=== PATIENT | female | born 1950 | race Caucasian/White ===

== ENCOUNTER 2017-02-22 10:57 | Observation (INO) | payer MEDICARE ==
--- NOTE | 2017-02-22 11:34 | RAD ---
EXAM DESCRIPTION: Chest,2 Views CLINICAL HISTORY: 66 years,Female,unresponsive COMPARISON: None FINDINGS: There are no consolidations. No effusions. No pneumothoraces. No nodules. Bony elements unremarkable for age. Bilateral calcified breast implants. Mild paucity of lung markings and hyperinflation. IMPRESSION: There may be some mild emphysematous changes but otherwise no acute findings. Electronically signed by: Max León MD 02/22/2017 11:33 AM CDT
[2017-02-22] MEDS ORDERED: IBUPROFEN 200 MG TAB PO ONE (12:04)
--- NOTE | 2017-02-22 15:38 | ED.PDOC ---
History of Present Illness - General Chief Complaint: Unresponsive Stated Complaint: found unresponsive at home Time Seen by Provider: 02/22/17 10:57 Source: patient, EMS notes reviewed Exam Limitations: clinical condition - History of Present Illness Initial Comments: The patient is a 66-year-old female presenting to the emergency room with something of a confusing story. EMS brought the patient in. EMS was called on this patient by her friend that she is staying with. Her friend apparently called the EMS reporting that she was blue and not arousable or breathing. The friend apparently told EMS that she did CPR on the patient. The first thing the patient remembers is looking up and seeing her friend. She doesn't remember any chest compressions. EMS arrived shortly and vital signs were normal and the patient was alert and oriented. The patient is feeling fine upon arrival here. Upon calling this friend back, her recollection of the events of the morning are very fuzzy and she does take numerous pain and sedative medications for her cancer diagnosis. The friend is unable to say if she did chest compressions or gave her rescue breathing. The friend is unable to say how long it was from the time that she found her to when she was back alert and oriented. This patient does take numerous sedating medications for her chronic diagnoses. There is, due to the medications, the possibility of a central sleep apnea. The patient also apparently suffers from seizures of one form or another and she may have been having a seizure this morning. There is also a question of arrhythmia in this patient's past. In short, there are multiple potential reasons for this patient to have been less than normally responsive when her friend checked on her. Timing/Duration: unsure Improving Factors: nothing Worsening Factors: nothing Allergies/Adverse Reactions: Allergies Aspirin Allergy (Verified 02/22/17 11:16) Erythromycin Allergy (Verified 02/22/17 11:16) Sulfamethoxazole w/Trimethoprim [From Bactrim] Allergy (Verified 02/22/17 11:16) Home Medications: Ambulatory Orders Amlodipine Besylate 5 mg PO DAILY 02/22/17 Carbamazepine 200 mg PO DAILY 02/22/17 Carbidopa-Levodopa [Carbidopa/Levodopa 25-100 mg] 1 tab PO TID 02/22/17 Diclofenac Potassium 50 mg PO Q8H PRN 02/22/17 Diclofenac Potassium (Migraine [Cambia] 50 mg PO BID PRN 02/22/17 Gabapentin 100 mg PO BEDTIME 02/22/17 Ibuprofen 600 mg PO Q8H PRN 02/22/17 Levothyroxine Sodium 50 mcg PO DAILY 02/22/17 Liothyronine Sodium 5 mcg PO DAILY 02/22/17 Meloxicam 15 mg PO DAILY 02/22/17 Ondansetron HCl [Zofran] 4 mg PO PRN 02/22/17 Propranolol HCl 40 mg PO BID 02/22/17 Ranitidine HCl 150 mg PO BID 02/22/17 Ropinirole Hydrochloride [Ropinirole HCl] 0.25 mg PO TID 02/22/17 tiZANidine [Zanaflex] 4 mg PO TID PRN 02/22/17 Review of Systems - Review of Systems Review of Systems: 02/22/17 15:38 for symptoms change from baseline or in addition to baseline Constitutional: States: no symptoms reported EENTM: States: no symptoms reported Respiratory: States: no symptoms reported Cardiology: States: no symptoms reported Gastrointestinal/Abdominal: States: no symptoms reported Genitourinary: States: no symptoms reported Musculoskeletal: States: no symptoms reported Skin: States: no symptoms reported Neurological: States: no symptoms reported Endocrine: States: no symptoms reported Past Medical History (General) - Patient Medical History Hx Seizures: Yes - Central tremors Hx Congestive Heart Failure: No Hx Thyroid Disease: Yes Hx Diabetes: No - Vaccination History Hx Influenza Vaccination: No Hx Pneumococcal Vaccination: No - Social History Hx Tobacco Use: Yes Family Medical History - Family History Mother Family History: Unknown Living Status: Unknown Physical Exam - Physical Exam General Appearance: Alert, Comfortable, No apparent distress - the patient's thought processes are obviously slowed No focal neurological deficits. She is alert and oriented. Eye Exam: bilateral normal Ears, Nose, Throat: hearing grossly normal, normal ENT inspection, normal pharynx Neck: non-tender, full range of motion, supple Respiratory: chest non-tender, lungs clear, normal breath sounds, no respiratory distress, no accessory muscle use Cardiovascular/Chest: normal peripheral pulses, regular rate, rhythm, no edema, other - the patient has breast implants Peripheral Pulses: radial,right: 2+, radial,left: 2+, dorsalis pedis,right: 2+, dorsalis pedis,left: 2+ Gastrointestinal/Abdominal: non tender, soft Rectal Exam: deferred Back Exam: normal inspection, no CVA tenderness, no vertebral tenderness Extremity: normal range of motion, non-tender, normal inspection, no pedal edema , no calf tenderness, normal capillary refill 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 Skin Exam: normal color Comments: Vital Signs - 24 hr 02/22/17 02/22/17 02/22/17 11:09 11:45 11:46 Temperature 96.9 F L Pulse Rate [ 81 75 85 Right Brachial] Respiratory 16 Rate Blood Pressure 176/79 154/88 154/89 [Right Arm] O2 Sat by Pulse 98 Oximetry 02/22/17 02/22/17 13:00 14:19 Temperature Pulse Rate [ 78 81 Right Brachial] Respiratory 20 16 Rate Blood Pressure 145/92 153/87 [Right Arm] O2 Sat by Pulse 100 98 Oximetry Progress - Progress Progress: 02/22/17 15:41 the patient is a 66-year-old female that may or may not have experienced an acute life-threatening event this morning. Laboratory work, EKG , chest x-ray, telemetry monitoring had been reassuring. The patient is mentating well and not exhibiting significant symptoms. Given her questionable history of arrhythmia, seizures and multiple sedative type medications, the patient will be monitored overnight to make sure there is no recurrence of any significant event. She will need telemetry and pulse oximetry monitoring. One more set of cardiac enzymes may be prudent. Admit for observation. - Results/Orders Results/Orders: 02/22/17 11:08 Telemetry .CONTINUOUS Vital Signs-Tilt PRN 02/22/17 11:15 EKG STAT Laboratory Results - last 24 hr 02/22/17 02/22/17 02/22/17 11:15 11:15 11:15 WBC 4.0 L RBC 3.68 L Hgb 11.7 L Hct 34.5 L MCV 93.7 MCH 31.7 H MCHC 33.8 RDW 13.3 Plt Count 105 L MPV 9.6 Absolute Neuts (auto) 2.00 Absolute Lymphs (auto) 1.40 Absolute Monos (auto) 0.50 Absolute Eos (auto) 0.10 Absolute Basos (auto) 0.00 Neutrophils % 50.1 Lymphocytes % 34.1 Monocytes % 12.6 H Eosinophils % 2.3 Basophils % 0.9 PT 10.2 INR 0.900 PTT (SP) 28.7 D-Dimer, Quantitative < 200 Sodium 141 Potassium 3.8 Chloride 103 Carbon Dioxide 30 Anion Gap 11.8 L BUN 12 Creatinine 0.74 BUN/Creatinine Ratio 16.2 Random Glucose 83 Serum Osmolality 280.2 Calcium 9.5 Magnesium 2.1 Total Bilirubin 0.5 AST 42 ALT 57 Alkaline Phosphatase 99 Creatine Kinase 69 CK-MB (CK-2) 2.8 CK-MB (CK-2) % Not Reportable Troponin I 0.02 B-Natriuretic Peptide 50.5 Serum Total Protein 6.7 Albumin 4.0 Globulin 2.7 Albumin/Globulin Ratio 1.5 TSH 1.03 Urine Color Urine Appearance Urine pH Ur Specific Walton Urine Protein Urine Glucose (UA) Urine Ketones Urine Blood Urine Nitrite Urine Bilirubin Urine Urobilinogen Ur Leukocyte Esterase Urine RBC Urine WBC Ur Epithelial Cells Urine Bacteria 02/22/17 02/22/17 12:00 14:15 WBC RBC Hgb Hct MCV MCH MCHC RDW Plt Count MPV Absolute Neuts (auto) Absolute Lymphs (auto) Absolute Monos (auto) Absolute Eos (auto) Absolute Basos (auto) Neutrophils % Lymphocytes % Monocytes % Eosinophils % Basophils % PT INR PTT (SP) D-Dimer, Quantitative Sodium Potassium Chloride Carbon Dioxide Anion Gap BUN Creatinine BUN/Creatinine Ratio Random Glucose Serum Osmolality Calcium Magnesium Total Bilirubin AST ALT Alkaline Phosphatase Creatine Kinase 83 CK-MB (CK-2) 3.4 CK-MB (CK-2) % Not Reportable Troponin I < 0.02 B-Natriuretic Peptide Serum Total Protein Albumin Globulin Albumin/Globulin Ratio TSH Urine Color Yellow Urine Appearance Clear Urine pH 7.0 Ur Specific Walton 1.015 Urine Protein Negative Urine Glucose (UA) Negative Urine Ketones Negative Urine Blood Negative Urine Nitrite Negative Urine Bilirubin Negative Urine Urobilinogen 0.2 Ur Leukocyte Esterase Negative Urine RBC 0 Urine WBC 0 Ur Epithelial Cells 1-3 Urine Bacteria 0 chest x-ray shows breast implants. No acute pathology. EKG shows normal sinus rhythm. No acute ST segment changes concerning for ischemia.i see no evidence of significant arrhythmia on telemetry monitoring either. Departure - Departure Clinical Impression: Altered mental status Qualifiers: Altered mental status type: persistent vegetative state Qualified Code(s): R40.3 - Persistent vegetative state Disposition: Admit Patient Home Medications: Ambulatory Orders Amlodipine Besylate 5 mg PO DAILY 02/22/17 Carbamazepine 200 mg PO DAILY 02/22/17 Carbidopa-Levodopa [Carbidopa/Levodopa 25-100 mg] 1 tab PO TID 02/22/17 Diclofenac Potassium 50 mg PO Q8H PRN 02/22/17 Diclofenac Potassium (Migraine [Cambia] 50 mg PO BID PRN 02/22/17 Gabapentin 100 mg PO BEDTIME 02/22/17 Ibuprofen 600 mg PO Q8H PRN 02/22/17 Levothyroxine Sodium 50 mcg PO DAILY 02/22/17 Liothyronine Sodium 5 mcg PO DAILY 02/22/17 Meloxicam 15 mg PO DAILY 02/22/17 Ondansetron HCl [Zofran] 4 mg PO PRN 02/22/17 Propranolol HCl 40 mg PO BID 02/22/17 Ranitidine HCl 150 mg PO BID 02/22/17 Ropinirole Hydrochloride [Ropinirole HCl] 0.25 mg PO TID 02/22/17 tiZANidine [Zanaflex] 4 mg PO TID PRN 02/22/17 Decision To Admit - Decistion To Admit Decision to Admit Reason: Medical Nature Decision to Admit Date: 02/22/17 Decision to Admit Time: 15:44
--- NOTE | 2017-02-22 16:45 | HP ---
HISTORY OF PRESENT ILLNESS: This 66 year-old white female is admitted to the hospital from the Emergency Room after being found poorly responsive earlier today by her friend who she is visiting from [place]. The patient apparently drove up from [place] to see her friend who has been told that she has a few weeks of life left after a blunt head injury in the past. As she was coming into town, she remembered having taken some Tizanidine earlier in the day and about 4 hours later was stopped by a special police officer because of erratic swerving as she drove her vehicle. She was helped to get to the friend's home. She was found poorly responsive earlier this morning by the friend who initially stated that she was cyanotic and not breathing, but started to breathe fairly quickly with some stimulation. At a later time, the E. R. physician requested information from the lady who helped revive the patient earlier this morning and she did not recall having had to actively participate in waking her up at that time. The patient apparently is having some confusion spells as also is the patient. The patient has recently gone through a significant divorce which has made her hand and body tremors worse. She is followed by a group of doctors in the [place] area. She takes anti-tremor medication as well as muscle relaxant medications and has had some episodes of falling for which she has taken Tylenol #3 in the past which caused her not to be able to turn over in bed. When this was stopped, she was able to turn over more readily. In the Emergency Room, she was found to have laboratory generally unremarkable but because of her episode earlier of a possible arrhythmia and unconsciousness, and not breathing, according to the history, she will be observed overnight in an effort to make sure there was no other significant underlying etiology contributing to her disability. The patient is visiting here from [place] and is going to be having difficulty returning to [place] in her current condition. Hopefully reducing some of the medications will help her to be more alert and special attention to her ongoing pain problems to be addressed. PAST MEDICAL HISTORY: 1. It is of note that the patient has had petit mal seizures in the past for which she takes medicine. 2. She has had heart rhythm problems which she thinks that Tizanidine makes worse, but her doctor insists that she keep taking. 3. She has been sedated. 4. She has a tremor. 5. She has been falling and sitting down hard on her bottom with both of her buttocks sore. 6. She has had a CT of the head about 3 months ago which failed to show any abnormalities. PAST SURGICAL HISTORY: 1. Hysterectomy. 2. Left thyroid removal. 3. Breast augmentation years ago. HOME MEDICATIONS: Please refer to nurses' notes for a list of home medications taken by the patient. ALLERGIES: ASPIRIN, ERYTHROMYCIN AND BACTRIM PRODUCTS. FAMILY HISTORY: Positive for cancer. 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 She used tobacco only a couple of times as a teenager and has not smoked since. REVIEW OF SYSTEMS: She has had some weight loss from 145 to 120 recently. She thinks she might have a fever now. HEENT: No hearing or vision disturbances, but she does have an obtunded appearance. LUNGS: No significant cough or shortness of breath. CARDIOVASCULAR: No chest pains or palpitations. ABDOMEN: No nausea, vomiting, diarrhea or blood in the stools. EXTREMITIES: Fairly good range of motion, but having some arthritic discomforts. NEUROLOGIC: Chronic pain, difficulty sleeping and history of petit mal or absence seizures. Recent MRI and CT of the head has been performed. Also studies have also been done of her spine looking for other etiologies of her pain. PHYSICAL EXAMINATION: VITAL SIGNS: Temperature 99.4, pulse 88, blood pressure 175/76, room air saturation 98%. Weight 55.8 kilos. GENERAL: The patient is fairly awake, although somewhat slow in her speech suggesting a degree of obtundation or sedation from various medications, especially the Tizanidine muscle relaxant taken earlier today. HEENT: Unremarkable. NECK: Supple. Scar from previous partial thyroid removal noted when she had a cold nodule years ago. CHEST: Lungs have some diminished breath sounds. Bilateral breast augmentation somewhat calcified, especially documented also by radiographs. CARDIOVASCULAR: Heart tones are regular. ABDOMEN: Generally soft with some mild epigastric tenderness upon palpation. Bowel tones are present. EXTREMITIES: Fairy well formed with the patient frequently moving, stretching and extending her toes and moving ankles and hands during the exam. NEUROLOGIC: The patient does describe some degree of depression as it relates especially to her recent traumatic divorce that she has completed at this time. LABORATORY STUDIES: White count 4,000, hemoglobin 11.7 with 50% neutrophils and platelets 105,000 combined to make a moderate degree of pancytopenia. INR of 0.9. D-dimer is low at under 200. Chemistry showed potassium 3.8, CO2 of 30 , BUN 12, creatinine 0.74, glucose 83, magnesium 2.1. Liver enzymes normal. Cardiac enzymes normal with troponin zero. Beta natriuretic peptide of 50.5, albumin 4, TSH of 1. Urinalysis generally clean. No cultures obtained. Chest x-ray is performed and fails to show any significant abnormalities except for some mild emphysematous changes. ASSESSMENT: 1. Acute syncopal episode with loss of consciousness with spontaneous recovery. 2. History of cardiac arrhythmias with the patient admitted to rule out any significant cardiac dysrhythmias contributing to her significant state. 3. History of petit mal or absence seizures. 4. Chronic pain state, especially in the back and joints. 5. Occasional falls. 6. Polypharmacy with evidence of sedation possibly especially aggravated by muscle relaxant medications such a Tizanidine. 7. History of tremor for which she takes medicines and is followed by physicians in [place]. 8. Mild pancytopenia with followup tomorrow possibly related to medications. PLAN: The patient will be observed tonight with repeat enzymes in the morning. Recheck laboratory studies. Try Tramadol for pain relief. Social Service to assist with possible transfer back to [place] unless she is able to significantly show improvement with decreased medications. Will decrease the Zanaflex to only 2 mg instead of the 4 mg t.i.d. as needed. Check her lumbar spine to check for compression fractures. Try Benadryl to assist with sleep and increase activity as tolerated. Will observe and may require Physical Therapy intervention if not able to spontaneously improve with decreased medications provided. #[id number] MTDD
[2017-02-22] MEDS ORDERED: MAGNESIUM HYDROXIDE 30 ML UD PO PRN (18:53)
[2017-02-22] MEDS ORDERED: SODIUM CHLORIDE 0.9% (FLUSH) 10 ML SYG IV PRN (18:53)
[2017-02-22] MEDS ORDERED: IV SET AND CAP CHANGE INJ INJ SCH (19:00)
[2017-02-22] MEDS ORDERED: traMADol HCL 50 MG TAB PO PRN (19:04)
[2017-02-22] MEDS ORDERED: diphenhydrAMINE HCL 25 MG CAP PO PRN (19:14)
[2017-02-22] MEDS ORDERED: NON-FORMULARY MEDICATION 1 EA MIS (Diclofenac Potassium [Diclofenac Potassium] 50 MG) PO PRN (19:16)
[2017-02-22] MEDS ORDERED: tiZANidine 4 MG TAB PO PRN (19:23)
[2017-02-22] MEDS ORDERED: ONDANSETRON 4 MG TAB PO PRN (19:30)
--- NOTE | 2017-02-22 19:46 | RAD ---
PROCEDURE: Lumbar Spine 3 Views Clinical History: fall, low back pain Indication: Same as above Comparison: None . Technique: 3.0 views of the lumbar spine were done. Findings: There is no loss of vertebral body height. There is no evidence of spondylolisthesis in the lumbosacral spine. There is mild reduction in the intervertebral disc space height at L4/L5 level. There is no significant scoliotic curvature of the lumbar spine. The bone mineralization is normal for patient's age. The thoracolumbar and the lumbosacral junction are intact. The visualized portions of the bilateral sacroiliac joints are unremarkable. The paravertebral soft tissues are radiographically unremarkable. The posterior elements are normal. There is no visualization of any radiopaque foreign bodies in the soft tissues. Impression: Negative for acute bony trauma involving the lumbar spine Location of Interpretation: Teleradiology Electronically signed by: Zeke Chavez MD 02/22/2017 7:45 PM CDT Workstation: [id number]
[2017-02-22] MEDS: carBAMazepine 200 MG TAB PO SCH (19:56)
[2017-02-22] MEDS: DOCUSATE SODIUM 100 MG CAP PO SCH (19:57)
[2017-02-22] MEDS ORDERED: PROPRANOLOL HCL 20 MG TAB ONE (20:18)
[2017-02-22] MEDS ORDERED: CARBIDOPA/LEVODOPA 25/100 1 TAB PO ONE (20:18)
[2017-02-22] MEDS ORDERED: [UNRECOGNIZED DRUG - OTHER] PO SCH (21:00)
[2017-02-22] MEDS ORDERED: CARBIDOPA LEVODOPA PO SCH (21:00)
[2017-02-22] MEDS ORDERED: NON-FORMULARY MEDICATION 1 EA MIS (Propranolol Hcl [Propranolol Hcl] 40 MG) PO SCH (21:00)
[2017-02-22] MEDS ORDERED: GABAPENTIN 100 MG CAP PO SCH (21:00)
[2017-02-22] MEDS: KETOROLAC TROMETHAMINE INJ 30 MG/ML VIAL IV SCH (21:43)
--- NOTE | 2017-02-23 01:36 | PCM.CORE ---
Physician DVT/VTE - Nurse DVT Assessment & Total Each Risk Factor Represents 2 Points: Age 60-74 DVT Assessment Score: 2 - 2 Moderate Risk Treatments: Sequential Compression Device Pharmacological: Enoxaparin 40mg SQ Daily
[2017-02-23] MEDS ORDERED: ENOXAPARIN SODIUM 40 MG/0.4 ML SYG SUBCU SCH (02:00)
[2017-02-23] MEDS: KETOROLAC TROMETHAMINE INJ 30 MG/ML VIAL IV SCH ×2 (03:51→09:38)
[2017-02-23] MEDS ORDERED: OMEPRAZOLE CAP 20 MG CAP PO SCH (06:30)
[2017-02-23] MEDS ORDERED: amLODIPine BESYLATE 5 MG TAB PO SCH (09:00)
[2017-02-23] MEDS ORDERED: CARBIDOPA/LEVODOPA 25/100 1 TAB PO SCH (09:00)
[2017-02-23] MEDS ORDERED: LEVOTHYROXINE SODIUM 0.025 MG TAB PO SCH (09:00)
[2017-02-23] MEDS: DOCUSATE SODIUM 100 MG CAP PO SCH (09:37)
[2017-02-23] MEDS: carBAMazepine 200 MG TAB PO SCH (09:38)
[2017-02-23 10:47] VITALS: BP 173/89; TEMP 98.1; O2SAT 96
[2017-02-24] MEDS ORDERED: ENOXAPARIN SODIUM 40 MG/0.4 ML SYG SUBCU SCH (09:00)
--- NOTE | 2017-02-24 09:10 | DS ---
SUPERVISING PHYSICIAN: Navin Aguilar MD DISCHARGE DIAGNOSIS: 1. Acute syncopal episode with loss of consciousness with spontaneous recovery , unknown etiology, possibly secondary to medication regimen and polypharmacy. 2. History of cardiac arrhythmias with the patient admitted to rule out any significant cardiac dysrhythmias contributing to her significant state. 3. History of petit mal or absence seizures. 4. Chronic pain state, especially in the back and joints. 5. Occasional falls. 6. Polypharmacy with evidence of sedation, possibly especially aggravated by muscle relaxant medications such a tizanidine. 7. History of tremor for which she takes medicines and is followed by physicians in [place]. 8. Mild pancytopenia with stable hemoglobin, hematocrit and platelet count, unknown etiology, likely contributed to by polypharmacy and chronic illness. HISTORY OF PRESENT ILLNESS: Ms. Holt is a 66 year-old, female who is admitted to the hospital from the Emergency Room after being found poorly responsive earlier they day of admission by her friend who she is visiting from [place]. The patient apparently drove up from [place] to see her friend who has been told that she has a few weeks of life left after a blunt head injury in the past. As she was coming into town, she remembered having taken some tizanidine earlier in the day and about 4 hours later was stopped by a police chief deputy because of erratic swerving as she drove her vehicle. She was helped to get to the friend's home. She was found poorly responsive earlier the morning of admission by the friend who initially stated that she was cyanotic and not breathing, but started to breathe fairly quickly with some stimulation. At a later time, the Emergency Room physician requested information from the lady who helped revive the patient earlier that morning and she did not recall having had to actively participate in waking her up at that time. The patient apparently is having some confusion spells as also is the patient. The patient has recently gone through a significant divorce, which has made her hand and body tremors worse. She is followed by a group of doctors in the [place] area. She takes anti-tremor medication as well as muscle relaxant medications and has had some episodes of falling for which she has taken Tylenol #3 in the past which caused her not to be able to turn over in bed. When this was stopped, she was able to turn over more readily. In the Emergency Room, she was found to have laboratory generally unremarkable, but because of her episode earlier of a possible arrhythmia and unconsciousness, and not breathing, according to the history, she was observed overnight in an effort to make sure there was no other significant underlying etiology contributing to her disability. The patient is visiting here from [place] and was going to be have difficulty returning to [place] in her current condition. After admission and reduction of medications, it was felt that she could probably be discharged to continue with treatment and to have ongoing followup regarding addressing further medication regimen once discharged. She was placed in observation in stable condition. LABORATORY: White count was stable and at discharge was 4.5. Hemoglobin 10.9, hematocrit 32.1, platelet count 160,000, differential within normal limits. Coagulation studies showed normal PT, PT-T and D-dimer. Chemistries were unremarkable at discharge with normal electrolytes with potassium 3.7. Liver functions all within normal limits. She had three sets of troponins that were all within normal limits at 0.02. Urinalysis was within normal limits. MICROBIOLOGY: No specimens submitted. No urine drug screen was submitted. RADIOLOGY: She did have a chest x-ray in the Emergency Department prior to placed in observation and per radiologic interpretation there were some mild emphysematous changes, but otherwise no acute findings. She also had a lumbar spine x-ray and per radiologic interpretation, it was negative for acute bony trauma involving the lumbar spine. HOSPITAL COURSE: Ms. Holt was admitted as noted in history of present illness for close observation. She was fairly stable. Her only medication regimen change was her tizanidine was changed to 2 mg from 4 mg. She did show good clinical improvement and on the morning of discharge, she was felt clinically stable enough to be discharged to go home to have followup with her physicians in [place]. PLAN: Ms. Holt was discharged on 02/23/17 with instructions to have close clinical followup with her primary care providers in [place]. She was encouraged to resume her home medications with modification of Zanaflex to decrease to 2 mg to prevent any further sedation episodes. She was encouraged to not drive while she was taking sedative medications to prevent any further problems with motor vehicle accidents in the future as they very much impaired her driving. She was to use caution when changing positions to allow herself to get her balance to prevent any falls and return to the hospital or call 911 should she have return of symptoms. She was to resume medications as noted with modification of tizanidine to 2 mg q.8h. as needed from 4 mg. Diet at discharge was regular as tolerated. Activity was to increase as tolerated. Condition at discharge was stable and improved. #[id number] [facility]
== END 2017-02-23 12:10 | disposition home or self-care (01) ==
LOC: ER 10:57 → INTOOBSV 16:24 → MS 16:24 → ER 16:35
PROVIDERS: ADMIT Emergency Medicine; ATTEND Nurse Practitioner Family
DX: R55 Syncope and collapse (principal); I49.9 Cardiac arrhythmia, unspecified; G89.29 Other chronic pain; R25.1 Tremor, unspecified; D61.818 Other pancytopenia; M54.5 Low back pain; Z91.81 History of falling; Z79.1 Long term (current) use of non-steroidal anti-inflammatories (NSAID); Z79.899 Other long term (current) drug therapy; Z88.3 Allergy status to other anti-infective agents; Z88.6 Allergy status to analgesic agent; Z86.69 Personal history of other diseases of the nervous system and sense organs; Z87.820 Personal history of traumatic brain injury; Z90.710 Acquired absence of both cervix and uterus
CPT/HCPCS: 36415 ×3; 71020; 72100; 80048; 80053; 81001; 82550 ×3; 82553 ×3; 83735; 83880; 84443; 84484 ×3; 85025 ×2; 85379; 85610; 85730; 93005; 94762; 96372; 96374; 96376; 99284; G0378; J1650; J1885 ×3